=== PATIENT | female | born 2000 | race Caucasian/White ===

== ENCOUNTER 2020-08-23 11:38 | Day surgery (SDC) | payer OTHER ==
[~2020-08-23 11:38] MED LIST: ceFAZolin 2 GM/50 ML 0 GM/0 ML BAG IV ONE; ceFAZolin 2 GM/50 ML 2 GM/50 ML BAG IV ONE
[2020-08-23 12:02] LABS: HCG UR QUAL NEGATIVE
[2020-08-23] MEDS ORDERED: LACTATED RINGERS 1,000 ML IV ONE ×2 (12:10→16:47)
[2020-08-23] MEDS ORDERED: METOCLOPRAMIDE 10 MG/2 ML VIAL IVP PRN (13:35)
[2020-08-23] MEDS ORDERED: MORPHINE 2 MG/ML CARPUJECT IVP PRN (13:35)
[2020-08-23] MEDS ORDERED: ONDANSETRON 4 MG/2 ML VIAL IVP PRN ×2 (13:35→16:44)
[2020-08-23] MEDS ORDERED: ATROPINE ABBOJECT 1 MG/10 ML SYRINGE IVP PRN (13:35)
[2020-08-23] MEDS ORDERED: NALOXONE 0.4 MG/ML VIAL IVP PRN (13:35)
[2020-08-23] MEDS ORDERED: fentaNYL 100 MCG/2 ML VIAL IVP PRN (13:35)
[2020-08-23] MEDS ORDERED: ePHEDrine 50 MG/ML VIAL IVP PRN (13:35)
--- NOTE | 2020-08-23 13:35 | ANESTHESIA ---
Pre-Anesthesia VS, & Labs - Diagnosis right tarsal navicular fracture - Procedure ORIF right tarsal navicular Vital Signs: Temp Pulse Resp BP Pulse Ox 36.6 C 82 16 114/78 100 08/23/20 12:02 08/23/20 12:02 08/23/20 12:02 08/23/20 12:02 08/23/20 12:02 Height: 5 ft 5 in Weight (kg): 91 kg Body Mass Index: 33.3 BMI Classification: Obese - NPO >8 hours - Is Patient ?: No - Lab Results Lab results reviewed: Yes Home Medications and Allergies Home Medications: Ambulatory Orders Clindamycin [Cleocin] 300 mg PO BID 08/19/20 Ibuprofen [Motrin] 600 mg PO Q6H PRN 08/19/20 Rifampin [Rifadin] 300 mg PO BID 08/19/20 Clindamycin [Cleocin] 300 mg PO BID 08/19/20 Ibuprofen [Motrin] 600 mg PO Q6H PRN 08/19/20 Rifampin [Rifadin] 300 mg PO BID 08/19/20 Allergies/Adverse Reactions: Allergies Allergy/AdvReac Type Severity Reaction Status Date / Time No Known Drug Allergies Allergy Verified 08/23/20 12:03 Anes History & Medical History - Anesthetic History Anesthesia Complications: reports: No previous complications Family history of Anesthesia Complications: Denies Family history of Malignant Hyperthermia: Denies - Medical History Cardiovascular: reports: None Pulmonary: reports: None Gastrointestinal: reports: None Musculoskeletal: reports: Other Endocrine/Autoimmune: reports: None Skin: reports: Other Smoking Status: Current every day smoker (vapes) Psychosocial: reports: No issues indicated - Surgical History Orthopedic: reports: Other Exam General: Alert, Oriented x3, Cooperative, No acute distress Dental: WNL Mouth Openin Fingerbreadth Neck Mobility: Normal Mallampati classification: I Respiratory: Lungs clear, Normal breath sounds, No respiratory distress, No accessory muscle use Cardiovascular: Regular rate, Normal S1, Normal S2, No murmurs Plan Anesthesia Type: General, Popliteal Block, Adductor Block Regional Block: Per Surgeon's request for Post Op pain control Consent for Procedure(s) Verified and Reviewed: Yes Code Status: Attempt Resuscitation ASA classification: 2-Mild systemic disease Is this case an emergency?: No
[2020-08-23] MEDS ORDERED: BUPIVACAINE 0.25% PF 10 ML VIAL ONE (13:43)
[2020-08-23] MEDS ORDERED: fentaNYL 100 MCG/2 ML VIAL ONE ×2 (13:48→15:25)
[2020-08-23] MEDS ORDERED: MIDAZOLAM 2 MG/2 ML VIAL ONE (13:48)
[2020-08-23] MEDS ORDERED: PROPOFOL 200 MG/20 ML VIAL IVP ONE (13:49)
[2020-08-23] MEDS ORDERED: DEXAMETHASONE 4 MG/ML VIAL ONE (13:49)
[2020-08-23] MEDS ORDERED: KETOROLAC 30 MG/ML VIAL ONE (13:49)
[2020-08-23] MEDS ORDERED: ONDANSETRON 4 MG/2 ML VIAL ONE (13:49)
[2020-08-23] MEDS ORDERED: LIDOCAINE-MPF 2% 5 ML VIAL ONE (13:49)
[2020-08-23] MEDS ORDERED: LACTATED RINGERS 1,000 ML IV SCH (14:00)
[2020-08-23] MEDS ORDERED: BUPIVACAINE 0.25% PF 30 ML VIAL SUBQ ONE ×2 (14:24)
[2020-08-23] MEDS ORDERED: ACETAMINOPHEN 1,000 MG/100 ML 100 ML IV ONE (14:49)
[2020-08-23] MEDS ORDERED: SEVOFLURANE 250 ML LIQUID INH ONE (15:28)
--- NOTE | 2020-08-23 16:38 | XRAY Report ---
PROCEDURE: OR C-Arm Procedure INDICATIONS: ORIF RIGHT ANKLE/FOOT TECHNIQUE: Spot fluoroscopic images COMPARISON: None. FINDINGS: Spot fluoroscopic intraoperative images demonstrating screw fixation of the navicular. Hardware appea rs intact. Expected intraoperative alignment. Reviewed by: Keshav Cosby MD on 08/23/2020 4:36 PM PST Approved by: Keshav Cosby MD on 08/23/2020 4:36 PM [facility] Station ID: [id number]
[2020-08-23] MEDS ORDERED: oxyCODONE 5 MG TABLET PO PRN (16:44)
--- NOTE | 2020-08-23 16:51 | ANESTHESIA POST OP EVALUATION ---
Anesthesia Post Eval - Post Anesthesia Eval Vitals: Last Vital Signs Temp 36.6 C 08/23/20 12:02 Pulse 82 08/23/20 12:02 Resp 16 08/23/20 12:02 BP 114/78 08/23/20 12:02 Pulse Ox 100 08/23/20 12:02 CV Function Including HR & BP: positive: Stable Pain Control: positive: Satisfactory Nausea & Vomiting: positive: Negative Mental Status: positive: Patient Participates Respiratory Status: Airway Patent Hydration Status: Satisfactory Anesthesia Complications: positive: None
[2020-08-23] MEDS: HYDROmorphone 0.5 MG/0.5 ML SYRINGE IVP PRN ×2 (16:53→17:02)
[2020-08-23] MEDS ORDERED: HYDROmorphone 1 MG/ML CARPUJECT ONE (17:02)
--- NOTE | 2020-08-23 17:05 | OPERATIVE REPORT ---
Operative Report - Other Other Information/Narrative: Date of Surgery: 23 August 2020 Preoperative Diagnosis: Right Tarsal Navicular Fracture, Comminuted Surgery: Open reduction internal fixation of right tarsal navicular fracture Postoperative Diagnosis: Same Tourniquet Time: 120 minutes EBL: 10cc Implants: Synthes 4.0mm partially threaded cancellous screw in lag fashion. 2.4mm position screw Findings: Displaced Navicular fracture was reduced anatomically and fixed with 2 screws Postoperative Plan: 0-2 weeks: NWB in splint 2-8 weeks: NWB in boot. Very gentle ROM is OK 8-12 weeeks: Gradual progression of weight bearing in boot if fracture healing is occurring. 12 weeks: wean from boot and transition to carbon fiber insoles 16 weeks: advance activity as tolerated Procedure in Detail: The patient was met in the preoperative hold area on the day of the procedure. Operative extremity was signed, all questions were answered, and she desired to proceed. She was brought to the operating room and surrendered to anesthesia. Once general anesthesia was obtained she was prepped and draped in the standard fashion. A timeout was performed per protocol and we proceeded. Fluoroscopy was used to better assess the fracture and instability pattern. The foot was stable to abduction and adduction stresses. There was no instability noted on the lateral xray. The CC joint appeared intact. The esmarch was used to exsanguinate the leg and the tourniquet was elevated to 250mmhg. A dorsomedial approach between tibialis anterior and EHL was brought down to the periosteum. The fracture line was felt and confirmed on xray. The fracture was opened with a knife and the periosteum was lifted off the fracture lines for a couple millimeters. The TN and NC joint line was assessed. The fracutre line was removed of all blocks to reduction and a reduction was performed and held with a clamp. I then placed 2 1.25mm K-wires percutaneously from medial to lateral. A 1 cm incision was made laterally and I dissected bluntly down to bone. The k wires were then placed through this approach. Xrays confirmed good position of the wires. I then drilled over the proximal wire, removed the wire and placed a partially threaded 4.0mm cancellous screw until it was tight. The fracture compressed nicely and xrays confirmed position. I then removed the distal wire and drilled by hand through the same hole. A 2.4mm full threaded screw was placed in a position fashion. The fracture remained reduced on xrays and direct visualization. The clamp was removed and stress xrays showed no other unstable segments. The wounds were irrigated copiously and the tourniquet was dropped. There was no significant bleeding. The wounds were closed with 0-vicryl in the capsule/periosteum, 2-0 vicryl in the dermis and nylon in the skin. 20cc of 0.25% marcaine plain were placed about the incisions as a local block. The wounds were dressed and a sterile splint was applied.
[2020-08-23 17:22] VITALS: BP 121/82
[2020-08-23] MEDS ORDERED: oxyCODONE 5 MG TABLET ONE (17:38)
== END 2020-08-23 11:39 | disposition home or self-care (01) ==
LOC: SDS 11:38
PROVIDERS: ATTEND Orthopaedic Surgery
DX: S92.251A Displaced fracture of navicular [scaphoid] of right foot, initial encounter for closed fracture (principal); F17.290 Nicotine dependence, other tobacco product, uncomplicated; E66.9 Obesity, unspecified; Z68.33 Body mass index [BMI] 33.0-33.9, adult
CPT/HCPCS: 28465; 81025; A9270; J0131; J0690; J1170; J3490; J7120